=== PATIENT | male | born 1980 | race Caucasian/White ===

== ENCOUNTER 2018-05-12 15:52 | Emergency (ER) | payer SELFPAY ==
[2018-05-12 16:11] VITALS: PULSE 95; TEMP 98.2; BMI 27.3
--- NOTE | 2018-05-12 16:18 | PDOC ---
Rapid Medical Evaluation Chief Complaint: Headache Time Seen by Provider: 05/12/18 16:13 Medical Evaluation: Allergies Allergy/AdvReac Type Severity Reaction Status Date / Time No Known Allergies Allergy Verified 05/12/18 16:07 Vital Signs Temp Pulse Resp BP Pulse Ox 98.2 F 95 H 18 128/73 99 05/12/18 16:07 05/12/18 16:07 05/12/18 16:07 05/12/18 16:07 05/12/18 16:07 05/12/18 16:15 I have performed a brief in-person evaluation of this patient. The patient presents with a chief complaint of: AGUILLON and palpitations s/p drinking energy drink and going to the Gymn Pertinent physical exam findings: Anxious. lungs CTA. heart: RRR I have ordered the following:EKG. Utox The patient will proceed to the ED for further evaluation. Discharge Disposition - Diagnosis Headache Qualifiers: Headache type: unspecified Headache chronicity pattern: acute headache Intractability: intractable Qualified Code(s): R51 - Headache - Referrals - Patient Instructions - Post Discharge Activity
--- NOTE | 2018-05-12 17:18 | PDOC ---
History of Present Illness - General Chief Complaint: Headache Stated Complaint: HEADACHE Time Seen by Provider: 05/12/18 16:13 History Source: Patient - History of Present Illness Initial Comments: 05/12/18 17:14 Pt is a previously healthy 37yo m presenting to ED with complaints of AGUILLON and faster heart rate that started this morning around 8am. Pt said he went to the gym this morning and went "harder than usual". He went home and after eating his food at around 8am he started experiencing ringing in both of his ears and a posterior headache. He noticed his heart rate was in the 90s-100s when it is usually in the 60s/70s. He said he tried to rest and the headache has since been diminishing but he felt anxious. He denies dizziness, loss of consciousness , hitting his head, injuries, pain in the neck or back, changes in vision, numbness/tingling, imbalance, shortness of breath, chest pain, n/v/d, abdominal pain, urinary symptoms. PMH: none PSH: none Meds: none Allergies: nkda Social: occasional alcohol use. Denies tobacco, marijuana, illicit drug use. Past History - Past Medical History Allergies/Adverse Reactions: Allergies Allergy/AdvReac Type Severity Reaction Status Date / Time No Known Allergies Allergy Verified 05/12/18 16:07 Home Medications: Ambulatory Orders NK [No Known Home Medication] 05/12/18 COPD: No - Suicide/Smoking/Psychosocial Hx Smoking History: Never smoked Hx Alcohol Use: No Drug/Substance Use Hx: No Review of Systems - Review of Systems Able to Perform ROS?: Yes Constitutional: No: Chills, Fever, Weakness HEENTM: Yes: Tinnitus (bilaterally). No: Eye Pain, Blurred Vision, Ear Pain, Hearing Loss, Throat Pain Respiratory: No: Cough, Shortness of Breath, Hemoptysis Cardiac (ROS): No: Chest Pain, Lightheadedness, Palpitations, Syncope, Chest Tightness ABD/GI: No: Constipated, Diarrhea, Nausea, Rectal Bleeding, Vomiting, Abdominal cramping : No: Burning, Dysuria, Flank Pain, Hematuria Musculoskeletal: No: Back Pain, Joint Pain, Muscle Pain, Muscle Weakness, Neck Pain Neurological: Yes: Headache. No: Numbness, Paresthesia, Tingling, Tremors, Weakness, Unsteady Gait, Ataxia, Dizziness Psychiatric: Yes: Anxiety *Physical Exam - Vital Signs Last Vital Signs Temp Pulse Resp BP Pulse Ox 98.2 F 95 H 18 128/73 99 05/12/18 16:07 05/12/18 16:07 05/12/18 16:07 05/12/18 16:07 05/12/18 16:07 - Physical Exam Comments: 05/12/18 19:52 pt resting comfortably in bed General Appearance: Yes: Nourished, Appropriately Dressed. No: Apparent Distress HEENT: positive: EOMI, XIOMARA, TMs Normal, Pharynx Normal, Hearing Grossly Normal. negative: Pale Conjunctivae, Photophobia, Scleral Icterus (R), Scleral Icterus (L), Pharyngeal Erythema, Tonsillar Exudate, Rhinorrhea, Sinus Tenderness Neck: positive: Trachea midline, Supple. negative: Decreased range of motion, Lymphadenopathy (R), Lymphadenopathy (L) Respiratory/Chest: positive: Lungs Clear, Normal Breath Sounds. negative: Crackles, Rales, Rhonchi, Stridor, Wheezing Cardiovascular: positive: Regular Rhythm, Regular Rate, S1, S2. negative: Edema , JVD, Murmur Vascular Pulses: Carotid (R): 2+, Carotid (L): 2+, Dorsalis-Pedis (R): 2+, Doralis-Pedis (L): 2+ Gastrointestinal/Abdominal: positive: Normal Bowel Sounds, Soft. negative: Distended, Guarding, Rebound, Tenderness Musculoskeletal: positive: Normal Inspection. negative: CVA Tenderness, Decreased Range of Motion Extremity: positive: Normal Capillary Refill, Normal Inspection. negative: Coldness, Cyanosis, Swelling, Calf Tenderness Integumentary: positive: Normal Color, Dry, Warm Neurologic: positive: first officer and flight instructor II-XII NML intact, Fully Oriented, Alert, Normal Mood/ Affect, Normal Response, Motor Strength 5/5, Responsive, Finger to Nose. negative: Numbness, Sensory Deficit Deep Tendon Reflexes: Ankle (L): 2+, Ankle (R): 2+, Knee (L): 2+, Knee (R): 2+ Medical Decision Making - Medical Decision Making 05/12/18 19:55 Pt is a previously healthy 37yo m presenting to ED with complaints of AGUILLON and faster heart rate that started this morning around 8am. Pt said he went to the gym this morning and went "harder than usual". He went home and after eating his food at around 8am he started experiencing ringing in both of his ears and a posterior headache. Vitals: wnl, afebrile PE: benign, no neurological symptoms DDx: migraine, tension aguillon, vertebral aa dissection, CVA Low suspicion for dissection and CVA due to patient's age, lack of trauma, no neurological symptoms. CT head not necessary at this time. PT stated he drank an energy drink, diet pepsi and had chocolate, could possibly be dehydration. PT expressed desire to go home, was feeling better and did not want medications. Pt hemodynamically stable, felt better, ambulatory. Stable for dc home. given strict return precautions. pt agreed wiht plan. *DC/Admit/Observation/Transfer Diagnosis at time of Disposition: Headache Qualifiers: Headache type: unspecified Headache chronicity pattern: acute headache Intractability: intractable Qualified Code(s): R51 - Headache - Discharge Dispostion Disposition: HOME Condition at time of disposition: Improved Decision to Admit order: No - Referrals - Patient Instructions Printed Discharge Instructions: DI for Headache Additional Instructions: You were seen here today for headache. Everything was normal. Please stay well hydrated and follow up with your primary care doctor. Please come back to the ED if: headache gets worse, you notice changes in your vision, you start feeling dizzy, you feel like you are going to pass out, you have palpitations or if any new concerning symptom develops. Thank you - Post Discharge Activity
--- NOTE | 2018-05-12 17:40 | PDOC ---
Attending Attestation - Resident Resident Name: Iliana Bridges - ED Attending Attestation I have performed the following: I have examined & evaluated the patient, The case was reviewed & discussed with the resident, I agree w/resident's findings & plan - HPI HPI: 05/12/18 17:38 37 yo m presenting to ED with complaints of AGUILLON and faster heart rate that started this morning around 8am. went to gym this morning, exercised more strenuously than usual. +ringing in ear and occipital headache, since resolving. admits to anxiety and jitteriness. cleo PO, no other neuro changes. He denies dizziness, loss of consciousness, hitting his head, injuries, pain in the neck or back, fever or chills. changes in vision, numbness/tingling, imbalance, shortness of breath, chest pain, n/v/d, abdominal pain, urinary symptoms. - Physicial Exam PE: 05/12/18 17:39 NAD, well appearing, MMM, nl conjunctiva, anicteric; EOMI, PERRL, neck supple. lungs clear, RRR, abdomen soft nontender. BARRIOS x4, no focal neuro deficits. 5/5 strength in all extrem, distal and prox group, SILT. No peripheral edema. normal color for ethnicity, WWP. gait stable. no ataxia. no cerebellar signs. no meningismus 05/12/18 17:55 - Medical Decision Making 05/12/18 17:39 37 YOM with headache and tinnitus, no neuro changes or infection/fever. symptoms improving, no meds taken.. admits to eating chocolate today, monster drink and pepcid, which all may have precipitated his sx. Vitals wnl. no fever. declines tylenol, headache resolving. gait stable. doubt CONSTRUCTION CHECKER pathology or meningeal signs. cleo PO, wishes to go home. gait stable, no focal neuro deficits. no CT head warranted w/o clinical or acute changes. doubt emergent pathology, close return precautions given. supportive care and hydration encouraged. avoid triggers and precipitants. PMD followup, return precautions given 05/12/18 17:53 05/12/18 17:55
[2018-05-12 17:47] LABS: COCAINE, UR NEGATIVE ng/ml (CUTOFF=300); METHADONE, UR NEGATIVE ng/ml (CUTOFF=300); OPIATES, URI NEGATIVE ng/ml (CUTOFF=300); PHENCYCLIDINE,URINE NEGATIVE ng/ml (CUTOFF=25); URINE AMPHETAMINES NEGATIVE ng/ml (CUTOFF=500); URINE BARBITURATES NEGATIVE ng/ml (CUTOFF=200); URINE BENZODIAZEPINES NEGATIVE ng/ml (CUTOFF=200)
[2018-05-12 18:03] VITALS: BP 124/75
--- NOTE | 2018-05-13 14:30 | EKG ---
Test Reason : Blood Pressure : / mmHG Vent. Rate : 091 BPM Atrial Rate : 091 BPM P-R Int : 170 ms QRS Dur : 098 ms QT Int : 338 ms P-R-T Axes : 065 048 049 degrees QTc Int : 415 ms NORMAL SINUS RHYTHM WITH SINUS ARRHYTHMIA NORMAL ECG NO PREVIOUS ECGS AVAILABLE Confirmed by YULISA YARBROUGH MD ([id number]) on 05/13/2018 2:30:27 PM Referred By: Confirmed By:YULISA YARBROUGH MD
== END 2018-05-12 18:05 | disposition home or self-care (01) ==
LOC: JER 15:52
DX: R51 Headache (principal)
CPT/HCPCS: 80307; 93005; 93010; 99281-25

== ENCOUNTER 2019-04-18 23:00 | Emergency (ER) | payer OTHER ==
[2019-04-18 23:11] VITALS: BP 108/73; PULSE 78; TEMP 98.4; BMI 27.3
--- NOTE | 2019-04-18 23:54 | PDOC ---
*Physical Exam - Vital Signs Last Vital Signs Temp Pulse Resp BP Pulse Ox 98.4 F 78 18 108/73 98 04/18/19 23:09 04/18/19 23:09 04/18/19 23:09 04/18/19 23:09 04/18/19 23:09 Medical Decision Making - Medical Decision Making 04/18/19 23:54 Patient seen by the advanced practice provider under my direct supervision. Ancillary testing reviewed as necessary. I agree with plan as outlined by the advanced practice provider. *DC/Admit/Observation/Transfer Diagnosis at time of Disposition: Injury of finger Qualifiers: Encounter type: initial encounter Laterality: left Qualified Code(s): S69.92XA - Unspecified injury of left wrist, hand and finger(s), initial encounter - Discharge Dispostion Disposition: HOME Condition at time of disposition: Good - Referrals Referrals: Ham Bunch MD [Primary Care Provider] - Sonny Krishna MD [Staff Physician] - Call tomorrow Hang Bradshaw MD [Staff Physician] - Call tomorrow - Patient Instructions Printed Discharge Instructions: Finger Sprain Additional Instructions: keep in finger splint. it is Very important that you follow-up with a hand/orthopedic doctor. Apply ice to the hand for 24 hours. Return to the emergency room for any worsening symptoms - Post Discharge Activity Forms/Work/School Notes: Back to Work
[2019-04-18] MEDS ORDERED: IBUPROFEN 600 MG TABLET (FP) PO ONE (23:55)
[2019-04-19] MEDS ORDERED: IBUPROFEN 600 MG TABLET (FP) PO ONE (00:08)
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
== END 2019-04-19 01:17 | disposition home or self-care (01) ==
LOC: JER 23:00
PROC: 2W3KX1Z Immobilization of Left Finger using Splint (ICD-10-PCS; principal; 2019-04-18)
PROC: 2W3KX1Z Immobilization of Left Finger using Splint (ICD-10-PCS; 2019-04-18)
DX: S63.698A Other sprain of other finger, initial encounter (principal); V18.0XXA Pedal cycle driver injured in noncollision transport accident in nontraffic accident, initial encounter; Y92.488 Other paved roadways as the place of occurrence of the external cause; Y93.55 Activity, bike riding; Y99.8 Other external cause status
CPT/HCPCS: 29131; 73140-TC-LT-FY; 99282-25